=== PATIENT | female | born 1950 | race Asian ===

== ENCOUNTER 2022-11-28 10:00 | Day surgery (SDC) | payer MEDICARE, OTHER ==
[2022-11-27 11:24] LABS: BASOPHILS % (AUTO) 0.7 % (0.0-2.0); EOSINOPHILS % (AUTO) 3.7 % (1.0-6.0); HEMATOCRIT 41.4 % (36-46); HEMOGLOBIN 13.7 g/dL (12.0-16.0); LYMPHOCYTES # (AUTO) 1.6 K/uL (1.0-4.8); LYMPHOCYTES % (AUTO) 31.2 % (22.0-44.0); MEAN CORPUSCULAR HEMOGLOBIN 30.1 pg (26.0-34.0); MEAN CORPUSCULAR HGB CONC 33.1 G/dL (31.0-37.0); MEAN CORPUSCULAR VOLUME 91 fL (80-100); MONOCYTES # (AUTO) 0.5 K/uL (0.1-1.0); MONOCYTES % (AUTO) 9.1 % (2.0-9.0); NEUTROPHILS # (AUTO) 2.8 K/uL (1.8-7.7); NEUTROPHILS % (AUTO) 55.3 % (40.0-70.0); PLATELET COUNT (AUTO) 163 K/uL (150-450); RED BLOOD CELL COUNT(AUTO) 4.57 MIL/uL (4.00-5.20); RED CELL DISTRIBUTION WIDTH 13.5 % (11.5-14.5)
[2022-11-27 11:33] LABS: CALCIUM, TOTAL 9.3 mg/dL (8.8-10.5); CREATININE 0.94 mg/dL (0.60-1.30); POTASSIUM 4.1 mmol/L (3.5-5.1)
[2022-11-27 11:41] LABS: INR 0.9 (0.9-1.1); PROTHROMBIN TIME 9.9 SEC (9.4-11.6)
[2022-11-27 11:46] LABS: ALBUMIN 3.9 g/dL (3.4-5.0); BILIRUBIN,TOTAL 0.6 mg/dL (0.1-1.0); TOTAL PROTEIN, SERUM 7.9 g/dL (6.4-8.2)
[~2022-11-28] VITALS: Ht 152.4 cm; Wt 73.6 kg
[~2022-11-28 10:00] MED LIST: ASPI-1444 PO; ATOR20TA PO; LORA10TA7 PO; LOSA-30 PO; METO50TA9 PO; SODIUM CHLORIDE 0.9% 1,000 ML IV ONE
[2022-11-28] MEDS ORDERED: SODIUM CHLORIDE 0.9% 1,000 ML ONE (10:33)
[2022-11-28] MEDS ORDERED: HEPARIN SODIUM 1000 UNITS/NS 1,000 ML ONE (10:37)
[2022-11-28] MEDS ORDERED: VERAPAMIL HCL 2.5 MG/ML 2 ML VIAL ONE (10:37)
[2022-11-28] MEDS ORDERED: IOHEXOL 300 MG/ML 100 ML VIAL ONE (10:37)
[2022-11-28] MEDS ORDERED: NITROGLYCERIN 50 MG/D5% WATER 250 ML ONE (10:37)
[2022-11-28] MEDS ORDERED: LIDOCAINE/PF 1% 30 ML VIAL ONE (10:37)
[2022-11-28] MEDS ORDERED: SODIUM BICARBONATE 50 MEQ/50 ML VIAL ONE (10:37)
[2022-11-28] MEDS ORDERED: IOHEXOL 300 MG/ML 50 ML VIAL ONE (10:37)
[2022-11-28] MEDS ORDERED: LIDOCAINE 1% 30 ML/SOD BICARB 8.4% 4 ML SQ ONE (12:45)
[2022-11-28] MEDS ORDERED: VERAPAMIL HCL 2.5 MG/ML 2 ML VIAL IARTER ONE (12:45)
[2022-11-28] MEDS ORDERED: NITROGLYCERIN/D5W 50 MG/250 ML IV BOTTLE IARTER ONE (12:45)
[2022-11-28] MEDS ORDERED: FentaNYL CITRATE PF 100 MCG/2 ML VIAL IVP ONE (12:45)
[2022-11-28] MEDS ORDERED: HEPARIN SODIUM 1000 UNITS/NS 1,000 ML IARTER ONE (12:45)
[2022-11-28] MEDS ORDERED: IOHEXOL 300 MG/ML 100 ML VIAL ICOR ONE (12:45)
[2022-11-28] MEDS ORDERED: HEPARIN SODIUM,PORCINE 1,000 UNITS/ML 10 ML VIAL IVP ONE (12:45)
[2022-11-28] MEDS ORDERED: MIDAZOLAM HCL 2 MG/2 ML VIAL IVP ONE (12:45)
[2022-11-28] MEDS ORDERED: FentaNYL CITRATE PF 100 MCG/2 ML VIAL ONE (12:51)
[2022-11-28] MEDS ORDERED: MIDAZOLAM HCL 2 MG/2 ML VIAL ONE (12:52)
[2022-11-28 13:08] VITALS: BP 161/69; PULSE 61
[2022-11-28 13:24] VITALS: BP 161/69; PULSE 61
== END 2022-11-28 16:30 | disposition home or self-care (01) ==
LOC: CATHLAB 10:00
PROVIDERS: ATTEND Internal Medicine Cardiovascular Disease
DX: R00.2 Palpitations (principal); I10 Essential (primary) hypertension; E78.5 Hyperlipidemia, unspecified; R07.9 Chest pain, unspecified; K44.9 Diaphragmatic hernia without obstruction or gangrene; K76.0 Fatty (change of) liver, not elsewhere classified
CPT/HCPCS: 80053; 85025; 85610; 85730; 36415; 93005; 93458; J3010; J1644; J3490 ×4; J2250; J7030; Q9967